=== PATIENT | male | born 1950 | race Caucasian/White ===

== ENCOUNTER → 2018-07-04 | Outpatient (CLI) | payer OTHER | LOC: CIMAGING 13:18 | PROVIDERS: ATTEND Physician Assistant | DX: M51.36 Other intervertebral disc degeneration, lumbar region (principal); M48.061 Spinal stenosis, lumbar region without neurogenic claudication; Z98.1 Arthrodesis status | CPT/HCPCS: 72131-PO ==

== ENCOUNTER → 2018-09-13 | Outpatient (CLI) | payer OTHER ==
[~2018-09-13] MED LIST: REGADENOSON 0.4 MG/5 ML SYR IVP ONE
--- NOTE | 2018-09-13 13:31 | CPR ---
DATE OF PROCEDURE: 09/13/2018 PROCEDURE: Lexiscan nuclear stress test. INDICATION: Patient is a 68-year-old male who plans undergo prolonged back surgery next week. His r isk factors for coronary artery disease, include ongoing tobacco use. He also has a family history o f coronary artery disease with his father having a fatal CO at the age of 59. DESCRIPTION OF PROCEDURE: Consent was obtained and the patient was placed on continuous telemetry. His resting EKG reveals normal sinus rhythm with a heart rate of 78. His MO-interval is borderline a t 200. He has evidence of a right bundle branch block and left anterior fascicular block. The patie nt was infused with Lexiscan and complained of flushing and mild shortness of breath. He remained in normal sinus rhythm without any significant ST-T wave changes. His blood pressure at rest was 116/7 8 and remained stable throughout the procedure. PLAN: Await nuclear images. /[id number]/MODL
== END ==
LOC: FIMAGING 11:32
PROVIDERS: ATTEND Nurse Practitioner Family
DX: Z01.810 Encounter for preprocedural cardiovascular examination (principal); I25.10 Atherosclerotic heart disease of native coronary artery without angina pectoris; I25.2 Old myocardial infarction; I44.2 Atrioventricular block, complete; R94.31 Abnormal electrocardiogram [ECG] [EKG]; F17.200 Nicotine dependence, unspecified, uncomplicated; Z82.49 Family history of ischemic heart disease and other diseases of the circulatory system
CPT/HCPCS: 78452; A9500; J2785

== ENCOUNTER 2018-09-17 07:15 | Inpatient (IN) | payer OTHER ==
[2018-09-19] MEDS ORDERED: GABAPENTIN 300 MG CAP PO ONE (05:57)
[2018-09-19] MEDS ORDERED: ceFAZolin 2 GM/DEXTROSE 100 ML IV ONE (05:57)
[2018-09-19] MEDS ORDERED: ACETAMINOPHEN 500 MG TAB PO ONE (05:57)
[2018-09-19] MEDS ORDERED: LIDOCAINE 1% 2 ML INJ ID PRN (05:58)
[2018-09-19] MEDS ORDERED: LR 1,000 ML IV ONE (05:58)
--- NOTE | 2018-09-19 06:26 | PDHPUP ---
History & Physical Update H&P update statement: This history and physical update is based on an assessment of the patient which was completed after admission or registration (within 24 hours), but prior to the surgery/procedure. H&P update: H&P reviewed & patient examined, no change in patient's condition since H&P completed
[2018-09-19] MEDS ORDERED: MIDAZOLAM 2 MG/2 ML VIAL ONE (07:01)
[2018-09-19] MEDS ORDERED: CHLORHEXIDINE GLUC HIBICLENS 118 ML BTL TP ONE (07:02)
[2018-09-19] MEDS ORDERED: THROMBIN (BOVINE) 20,000 UNIT VIAL TP ONE (07:02)
[2018-09-19] MEDS ORDERED: BACITRACIN 50,000 UNITS/10 ML SYR IRR ONE ×2 (07:03→10:33)
[2018-09-19] MEDS ORDERED: BUPIVACAINE/EPI 0.25% 30 ML SDV ONE (07:03)
[2018-09-19] MEDS ORDERED: MIDAZOLAM 2 MG/2 ML VIAL IVP ONE (07:04)
[2018-09-19] MEDS ORDERED: PROPOFOL 200 MG/20 ML VIAL ONE ×2 (07:07→12:09)
[2018-09-19] MEDS ORDERED: fentaNYL 250 MCG/5 ML INJ ONE (07:10)
[2018-09-19] MEDS ORDERED: PROPOFOL/EMULSION 500 MG/50 ML BOTTLE IV ONE ×5 (07:11→10:39)
[2018-09-19] MEDS ORDERED: ONDANSETRON 4 MG/2 ML VIAL IVP PRN (07:32)
[2018-09-19] MEDS ORDERED: diphenhydrAMINE 25 MG CAP PO PRN (07:32)
[2018-09-19] MEDS ORDERED: NALOXONE HCL 0.4 MG/ML INJ IVP PRN ×2 (07:32→11:42)
[2018-09-19] MEDS ORDERED: LACTULOSE 20 GM/30 ML UDCUP PO PRN (07:32)
[2018-09-19] MEDS ORDERED: HYDROmorphONE/DILAUDID 6 MG/30 ML PCA IV PRN (07:32)
[2018-09-19] MEDS ORDERED: HYDROmorphONE/DILAUDID 1 MG/ML INJ IVP PRN (07:32)
[2018-09-19] MEDS ORDERED: BISACODYL 10 MG SUPP PR PRN (07:32)
[2018-09-19] MEDS ORDERED: MAGNESIUM HYDROXIDE 30 ML UDCUP PO PRN (07:32)
[2018-09-19] MEDS ORDERED: ONDANSETRON DISINTEGRATING 4 MG TAB PO PRN (07:32)
[2018-09-19] MEDS ORDERED: NS 1,000 ML IV SCH (07:45)
--- NOTE | 2018-09-19 08:25 | PDANEPAE ---
ANE History of Present Illness back pain ANE Past Medical History - Cardiovascular History Hx Hypertension: No Hx Arrhythmias: Yes Hx Chest Pain: No Hx Coronary Artery / Peripheral Vascular Disease: No Hx CHF / Valvular Disease: No Hx Palpitations: No Cardiovascular History Comment: has PPM inserted 01/2018 r/t occasional CHB - Pulmonary History Hx COPD: Yes Hx Asthma/Reactive Airway Disease: No Hx Recent Upper Respiratory Infection: No Hx Oxygen in Use at Home: No Hx Sleep Apnea: Yes Sleep Apnea Screening Result - Last Documented: Positive Pulmonary History Comment: MILD COPD DX 07/30/15. 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 squamous cell spots removed - Congenital Disorder History Hx Congenital Disorders: No - GI History GERD: no Hx Gastrointestinal Disorders: No Gastrointestinal History Comment: LOW SALIVA PRODUCTION r/t SJOGRENS - Other Health History Other Health History: SJOGRENS DX- AUTOIMMUNE. has dentures, upper and lower - has 1 implant upper and 2 implants that he glues the dentures to. wears glasses. osteoarthritis. reports lack of balance - Chronic Pain History Chronic Pain: Yes (BACK) - Surgical History Prior Surgeries: bilateral rotator cuff repairs. SURG URETER/R KIDNEY REMOVAL . BACK FUSION L3/4 4/5S- C2/3 3/4 4/5 5/6. CERVICAL DISCECTOMY. LUMBAR DISCECTOMY. R SHOULDER SCOPE. PILONOIDAL CYST REMOVAL. TONSILLECTOMY ANE Review of Systems Review of systems is: negative Review of Systems: - Exercise capacity Exercise capacity: >=4 METS METS (RN): 4 METS - Pacemaker Pacemaker Type: Permanent Pacer/Defib Pacemaker Classified Advertising Manager: Digital Path Pacemaker Model: Solia S60 Pacemaker Mode: DDD Pacemaker Set Rate: 50 ANE Patient History - Allergies Allergies/Adverse Reactions: No Known Allergies Allergy (Verified 08/29/18 10:38) - Home Medications Home medications: home medication list seen and reviewed Home Medications: oxyCODONE HCL/ACETAMINOPHEN [Percocet 7.5-325 mg Tablet] 1 each PO BID 07/30/12 [Last Taken 09/19/18 03:30] Acetaminophen/ASA/Caffeine [Excedrin Tablet (*)] 2 each PO TID 08/29/18 [Last Taken 09/09/18] Cholecalciferol Vit D3 [Vitamin D3 (*)] 1,000 units PO DAILY 08/29/18 [Last Taken 09/09/18] DULoxetine [Cymbalta 60 MG (*)] 60 mg PO DAILY 08/29/18 [Last Taken 09/19/18 03: 30] Finasteride [Proscar 5 MG (*)] 5 mg PO HS 08/29/18 [Last Taken 09/18/18 20:00] Pilocarpine HCl [Salagen 5mg (*)] 5 mg PO QID 08/29/18 [Last Taken 09/19/18 03: 30] Tamsulosin HCl [Flomax 0.4 MG (*)] 0.4 mg PO HS 08/29/18 [Last Taken 09/18/18 20 :00] Chantix 09/04/18 [Last Taken 09/19/18 03:30] - NPO status NPO Status: no food or drink >8 hours NPO Since - Liquids (Date): 09/19/18 NPO Since - Liquids (Time): 03:30 NPO Since - Solids (Date): 09/18/18 NPO Since - Solids (Time): 21:00 - Anes Hx Anes Hx: no prior problems - Smoking Hx Smoking Status: Current every day smoker - Family Anes Hx Family Hx Anesthesia Complications: NONE ANE Labs/Vital Signs - Vital Signs Vital Signs: reviewed preoperatively; see RN documention for details Blood Pressure: 123/72 Heart Rate: 69 Respiratory Rate: 9 O2 Sat (%): 90 Height: 187.96 cm Weight: 95.254 kg ANE Physical Exam - Airway Neck exam: FROM Mallampati Score: Class 1 Mouth exam: normal dental/mouth exam - Pulmonary Pulmonary: no respiratory distress - Cardiovascular Cardiovascular: regular rate and rhythym - ASA Status ASA Status: III
[2018-09-19] MEDS ORDERED: HYDROmorphONE/DILAUDID 2 MG/ML INJ ONE ×2 (08:50→11:06)
[2018-09-19] MEDS ORDERED: ePHEDrine SULFATE 25 MG/5 ML SYR ONE (08:53)
[2018-09-19] MEDS ORDERED: PHENYLEPHRINE HCL 100 MCG/ML SYR ONE (08:53)
[2018-09-19] MEDS ORDERED: ONDANSETRON 4 MG/2 ML VIAL ONE (09:46)
[2018-09-19] MEDS ORDERED: DEXAMETHASONE 4 MG/ML VIAL ONE ×2 (10:47)
[2018-09-19] MEDS ORDERED: ROCURONIUM 50 MG/5 ML VIAL ONE (10:47)
[2018-09-19] MEDS ORDERED: LIDOCAINE 2% 5 ML SDV ONE (10:47)
[2018-09-19] MEDS ORDERED: HYDROmorphONE/DILAUDID 2 MG/ML INJ IVP PRN (11:42)
[2018-09-19] MEDS ORDERED: ALBUTEROL 3 ML DEYVIAL IH PRN (11:42)
[2018-09-19] MEDS ORDERED: fentaNYL 100 MCG/2 ML INJ IVP PRN (11:42)
[2018-09-19] MEDS ORDERED: oxyCODONE IR 5 MG TAB PO PRN (11:42)
[2018-09-19] MEDS ORDERED: ACETAMINOPHEN 500 MG TAB PO PRN (11:42)
[2018-09-19] MEDS ORDERED: LABETALOL HCL 20 MG/4 ML INJ IVP PRN (11:42)
[2018-09-19] MEDS ORDERED: DIAZEPAM 5 MG/ML 1 ML SYR IVP PRN (11:42)
[2018-09-19] MEDS ORDERED: METOCLOPRAMIDE 10 MG/2 ML VIAL IVP PRN (11:42)
[2018-09-19] MEDS ORDERED: MEPERIDINE 25 MG/0.5 ML AMP IVP PRN (11:42)
[2018-09-19] MEDS ORDERED: PHENYLEPHRINE HCL 100 MCG/ML SYR IVP PRN (11:42)
[2018-09-19] MEDS ORDERED: PROMETHAZINE HCL 25 MG/ML INJ IVP PRN (11:42)
--- NOTE | 2018-09-19 11:49 | PDMN ---
Medical Necessity Medical necessity: Pt meets IP criteria as of 09/19/2018 per and [facility] [place] Lumbar fusion with removal of posterior instrumentation; Medicare IP only procedure
--- NOTE | 2018-09-19 13:29 | POSTOPPROG ---
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
--- NOTE | 2018-09-19 13:31 | SOAPPROG ---
SOAP Progress Note Assessment/Plan: Post Op Visit: S: Awake and alert. Pt with expected lower back pain O: AFVSS/PERRLA/EOMI no droop CN 2-12 grossly intact +lt touch 5/5 BUE/BLE = CDI NORMAN in place A/P: 68 yo male that is s/p TLIF at L2/3 and L5/S1 with PSF L2-S1 -orders in place -brace when out of bed -call with any questions or concerns -pt understands and agrees -post op xrays in am -no bending or twisting Objective: Vital Signs Temp Pulse Resp BP Pulse Ox 36.2 C 68 14 96/57 L 93 09/19/18 13:20 09/19/18 13:20 09/19/18 13:22 09/19/18 13:22 09/19/18 13:22 09/18/18 09/19/18 09/20/18 05:59 05:59 05:59 Intake Total 1950 Output Total 700 Balance 1250 ICD10 Worksheet Patient Problems: Problems Problem Status Onset Arthrodesis status Acute Lumbar radicular pain Acute Lumbar stenosis Acute - ICD10 Problem Qualifiers (1) Lumbar stenosis (2) Lumbar radicular pain (3) Arthrodesis status
[2018-09-19] MEDS: DULoxetine 60 MG CAP PO SCH (15:23)
[2018-09-19] MEDS: CHOLECALCIFEROL VIT D3 1,000 UNITS TAB PO SCH (15:23)
[2018-09-19] MEDS: PILOCARPINE HCL 5 MG TAB PO SCH ×3 (15:24→21:47)
[2018-09-19] MEDS: ceFAZolin 2 GM/DEXTROSE 100 ML IV SCH ×2 (15:31→21:45)
[2018-09-19] MEDS: ACETAMINOPHEN 500 MG TAB PO SCH ×2 (15:37→22:19)
[2018-09-19] MEDS: SENNOSIDES/DOCUSATE SODIUM TAB PO SCH ×2 (15:38→21:50)
[2018-09-19] MEDS: FAMOTIDINE 20 MG TAB PO SCH ×2 (15:39→21:48)
[2018-09-19] MEDS: METHOCARBAMOL 750 MG TAB PO PRN ×2 (15:39→21:51)
[2018-09-19] MEDS: GABAPENTIN 300 MG CAP PO SCH ×2 (15:39→21:46)
--- NOTE | 2018-09-19 17:25 | POSTANESTH ---
Post Anesthetic Evaluation Cardiovascular Status: Normal, Stable Respiratory Status: Normal, Stable Level of Consciousness/Mental Status: Can Participate in Eval Pain Control: Adequate, Prn Tx Ordered Nausea/Vomiting Control: Adequate, Prn Tx Ordered Complications Possibly Related to Anesthesia: None Noted
[2018-09-19] MEDS: HYDROCODONE/APAP 5/325 TAB PO PRN ×2 (18:09→22:16)
--- NOTE | 2018-09-19 18:19 | GOP ---
DATE OF OPERATION: 09/19/2018 SURGEON: Jose M Back MD NEUROSURGEON: Jose M Back MD BIOCHEMICAL ENGINEER: HERACLIO Meek-. PREOPERATIVE DIAGNOSIS: Possible pseudarthrosis following fusion at L5-S1, severe adjacent segment d isease at L2-3 above a prior L3-S1 fusion, bilateral lumbosacral radiculopathy, spinal stenosis, lumb ar degenerative disk disease L2-3. 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 PROCEDURE PERFORMED: We did a removal of posterior segmental instrumentation L3, L4, L5, S1, postero lateral intervertebral arthrodesis at L2-3 (45589), posterolateral and intervertebral arthrodesis L5- S1 (24224), posterior segmental instrumentation with new hardware at L2, L3, L4, L5, S1, same incisio n bone graft harvest, microscope, spinal stereotaxy, placement of biomechanical intervertebral device L2-3, L5-S1 (33311 x2). FINDINGS: Consistent with diagnoses and indeed we did confirm that there was a pseudoarthrosis at L5 -S1. It was stable, but there was not bony union present. SPECIMENS: None. INDICATIONS: The patient is a mature gentleman who had a prior history of an L3-S1 fusion back in 28 06, really without complication. He developed increasingly severe bilateral lumbosacral radiculopath y that was not responsive to conservative treatment measures. On imaging, it was unclear whether he had achieve bony union at L5-S1, but he appeared to be solid at L3-4, L4-5. CT scan was done, and th ere was evidence of some lucency around the S1 screws, and I was not convinced he had achieved bony a rthrodesis at that level. He did not appear to be having symptoms from it, but he did have radiating left leg pain. It is possible the left foraminal stenosis at L5-S1 could be contributing. I felt m ost of his left lower extremity pain was related to the severe adjacent segment stenosis at L2-3 abov e his fusion. I suggested that we do an adjacent segment fusion, remove his prior hardware, and inve stigate the fusion at L5-S1, and if indeed, he had a pseudoarthrosis, we could then fix at that time. The risk of nerve injury and spinal fluid leak was discussed. He knew that an ALIF procedure may b e necessary to fix the pseudoarthrosis at 5-1, but it was quite an undertaking to do this. I did exp renee the benefits of ALIF. It would help us get better taoist of his sagittal balance, but it i nvolves removing the posterior hardware first, followed by the ALIF, followed by going back to the po sterior approach. We thought we could try to achieve all of our surgical goals with a single approac h from the posterior aspect, but he understood their limitations with the posterior approach alone. He knew there was risk of further adjacent segment disease at L1-2, recurrent stenosis, and the possi ble need for future surgery. He wanted to proceed despite these risks. He also knew there was risk of screw and hardware malfunction, malposition, and he did want to proceed despite those risks as norman arnett. DESCRIPTION OF PROCEDURE: The patient was taken to the operating room, placed in supine position. G eneral anesthesia was begun. He was flipped prone onto the Esteban table. Care was taken to pad all points of contact. His left arm was tucked at his side. It was not put up above his head because t he last surgery, he had difficulty for several days with the left arm, and indeed, we saw signals in the left median nerve were not as good when the arm was up above his head, so we were able to success fully tuck it at his side. The right arm was put in the standard position. He was sterilely prepped and draped in usual fashion. A localizing x-ray was taken. We made a midline incision and it was quite long. We opened the prior incision, extended it rostrall y for about 4 or 5 cm and inferiorly about 3 cm. The new incision was twice as long as the old incis ion and measured on the order of about 13 cm. The subcutaneous tissue was dissected using the plasma blade down through the fascia and a subperiosteal dissection was made down the L1 lamina. We expose d the complete L2 and rostral L3 lamina. The screws at L3, 4, 5, and S1 were dissected free. We the n removed all these screws, cap screws, rods, and crosslink without difficulty. There was very solid posterolateral bone present from L3 to L5. We denuded all the posterolateral bone to create bony ar throdesis, and then, we looked carefully at the posterolateral bone at L5-S1. There was a large amou nt of posterolateral bone. We looked on the right first and there was just a thin hairline crack goi ng through this, and indeed, there was a pseudoarthrosis present. We took a matchstick drill bit and drilled down through the pseudoarthrosis adjacent to the L5 pedicle, and we had a large amount of reed ny exposure on either side of the pseudarthrosis. This was all decorticated, cleaned up to prepare f or repeat arthrodesis. The S1 screws also were notably somewhat loose when they removed. They were not completely loose, but they definitely were loose compared to the other screws consistent with our diagnosis of pseudoarthrosis. On the left-hand side, it was more subtle where the defect was, but it appeared to run in a longitudi nal fashion down toward the S1 pedicle. We decorticated all of this material and exposed bone, both at the L5 pedicle screw and the S1 pedicle screw to prepare for arthrodesis. We then performed an O- arm spin and using frame of Stealth stereotaxy, we placed pedicle screws bilaterally at L2, L3, L4, L 5, and S1. The S1 screws, we increased the diameter on these screws from 6.5 to 8.5 mm and had excel lent bony purchase. They were very strong screws. We did not distract whatsoever during the entire case at L5-S1 and simply allowed those screws to remain in their in-situ location in an effort to try to get a bony arthrodesis to occur there. I had a nice wide exposure at L5-S1 and I elected to try to perform a TLIF there. The O arm images a lso showed the foramen quite nicely and I thought there was good intervertebral space from me to put a spacer at L5-S1. We drilled a complete left L5-S1 facetectomy, identified the traversing or exitin g L5 nerve root at that level and the traversing S1 root. We worked in the axilla of the 5 root and incised the 5-1 disk, and then removed the disk and the cartilaginous endplates. We shot x-rays to c onfirm our location at L5-S1 in the intervertebral space. We removed a lot of this bone and roughene d the subchondral bone to create arthrodesis. We then placed bone autograft and BMP into the disk sp malena, followed by 7 x 25 mm [place] PEEK intervertebral device. It was inserted at L5-S1 and a great fit was obtained and AP and lateral x-rays confirmed the position of the device. We had also put a large amount of bone autograft there. This bone autograft had been harvested from the L3 spinous pro cess. After doing this, we then removed the microscope from the field as we had used the microscope for the foraminotomy, facetectomy, and decompression. We then took rods, placed them down over the screws f rom L2-S1 and then distracted at L2-3 and opened up that disk space. This was done temporarily until the TLIF was done. After the TLIF was done, we compressed at L2-3 to try to get some lordosis at th at level. We final tightened the other cap screws at S1, L5, L4, and L3, and then, we brought in the scope again, remove much of the inferior L2 spinous process, drilled bilateral laminectomies of L2, decompressed the thecal sac. There was very severe stenosis. We performed foraminotomies on each si de. We were able to easily pass our ball-tip probe out through the neural foramen at the end of our decompression. We removed the left L2-3 facet joint and prepared for a TLIF. We swept the L3 nerve medially at L2-3 and then incised the L2-3 disk, and removed the disk and the cartilaginous endplates. We roughened the subchondral bone there to create arthrodesis. We then sized with a trial and then chose a 7 x 28 mm device and inserted at L2-3. It was at this point, we relaxed our distraction and compressed on the rods, collapsing L2 on L3 slightly, and then after this was done, we then locked the screws in th is position and then expanded our implant, and we got some lordosis at L2-3. At least, it was better than prior to the procedure. We had bone autograft and BMP that we had also placed in the disk spac e there. This is ventral to the device, itself. We then decorticated all the posterolateral bone bi laterally at L2-3, L3-4, L4-5, and 5-1. We then placed a large amount of bone autograft as we had a huge amount of bone autograft present. We placed it bilaterally at L5-S1 and bilaterally at L2-3 to conclude our arthrodesis. We placed a subfascial drain, and then closed the incision in multiple lay ers using Vicryl sutures and a running PDS was placed in the skin itself. The patient was reversed f rom anesthesia, extubated, and transferred to recovery room in stable condition. There were no compl ications. COMPLICATIONS: None. INSTRUMENTATION: Hardware removed was Medtronic Solera 475 system. Hardware placed was Medtronic So laura 5.5 mm system with a titanium rods in the. /[id number]/MODL
[2018-09-19] MEDS: TAMSULOSIN HCL 0.4 MG CAP PO SCH (21:47)
[2018-09-19] MEDS: FINASTERIDE 5 MG TAB PO SCH (21:48)
[2018-09-20] MEDS: METHOCARBAMOL 750 MG TAB PO PRN (03:46)
[2018-09-20] MEDS: HYDROCODONE/APAP 5/325 TAB PO PRN ×3 (03:47→11:46)
[2018-09-20] MEDS: GABAPENTIN 300 MG CAP PO SCH ×3 (05:18→22:09)
[2018-09-20] MEDS: PILOCARPINE HCL 5 MG TAB PO SCH ×4 (05:18→22:09)
[2018-09-20 05:19] LABS: PLATELET COUNT 208 10^3/uL (150-400)
[2018-09-20] MEDS: ACETAMINOPHEN 500 MG TAB PO SCH ×3 (05:21→22:10)
--- NOTE | 2018-09-20 07:39 | NEUSURGPN ---
Date of Surgery: 09/19/18 Post Op Day: 1 Assessment/Plan: Assessment: 68 yo male that is s/p TLIF at L2/3 and L5/S1 with PSF L2-S1 POD #1 Plan: -s/p L spine surgery: Pt with expected lower back pain, legs feel better -orders in place -PT/OT ordered -brace when out of bed -call with any questions or concerns -pt understands and agrees -post op xrays in am -no bending or twisting Subjective: Awake and alert. NAD. Pt with expected lower back pain. No marie/neck/chest/abd or gu complaints. Objective: AFVSS/PERRLA/EOMI no droop CN 2-12 grossly intact +lt touch 5/5 BUE/BLE = CDI NORMAN in place Neuro Check Frequency: per routine Urinary Catheter in Place: No Catheter Insertion Date: 09/19/18 - Physician Discussed Patient with : Wong Patient Seen by : Wong Neurosurgery Physical Exam - Vitals, I&O, Labs I and O 09/19/18 09/20/18 09/21/18 05:59 05:59 05:59 Intake Total 4130 500 Output Total 3065 1000 Balance 1065 -500 Weight 95.254 kg Intake: Oral (ml) 2180 500 IV Intake (ml) 1950 Output: Urine (ml) 2625 1000 Catheter 2625 1000 Estimated Blood Loss (ml) 400 NORMAN Drain Output (ml) 40 #1 Back Esteban Polanco 40 Other: Intake Quantity Yes Sufficient Number of Stools Catheter 0 Vital Signs Temp Pulse Resp BP Pulse Ox 36.9 C 80 16 113/66 97 09/20/18 03:39 09/20/18 03:39 09/20/18 03:39 09/20/18 03:39 09/20/18 03:39 Laboratory Results 09/20/18 04:19 09/20/18 04:19 ICD10 Worksheet Patient Problems: Problems Problem Status Onset Arthrodesis status Acute Lumbar radicular pain Acute Lumbar stenosis Acute - ICD10 Problem Qualifiers (1) Lumbar stenosis (2) Lumbar radicular pain (3) Arthrodesis status
[2018-09-20] MEDS: DULoxetine 60 MG CAP PO SCH (08:23)
[2018-09-20] MEDS: CHOLECALCIFEROL VIT D3 1,000 UNITS TAB PO SCH (08:23)
[2018-09-20] MEDS: SENNOSIDES/DOCUSATE SODIUM TAB PO SCH ×2 (08:24→22:09)
[2018-09-20] MEDS: FAMOTIDINE 20 MG TAB PO SCH ×2 (08:24→22:10)
--- NOTE | 2018-09-20 10:36 | ASMTCMCOM ---
CM Note CM Note Notes: Patient is POD 1 TLIF L2-3, L5-S1 w PSF L2-S1. He is doing well with some expected back pain. Patient lives w his partner Eufemia. He is normally independent and works. Dr Back's office has ordered home health through [facility]. Dunia from [facility] met with patient today. Case Management will follow. CM Discharge plan: [facility] Date Signed: 09/20/2018 10:35 AM Electronically Signed By:Jo Mas RN
[2018-09-20] MEDS: oxyCODONE IR 5 MG TAB PO PRN ×2 (12:37→19:34)
[2018-09-20] MEDS: TAMSULOSIN HCL 0.4 MG CAP PO SCH (22:09)
[2018-09-20] MEDS: FINASTERIDE 5 MG TAB PO SCH (22:09)
[2018-09-21] MEDS: oxyCODONE IR 5 MG TAB PO PRN ×4 (06:02→21:50)
[2018-09-21] MEDS: PILOCARPINE HCL 5 MG TAB PO SCH ×4 (06:02→19:50)
[2018-09-21] MEDS: GABAPENTIN 300 MG CAP PO SCH ×3 (06:02→21:50)
[2018-09-21] MEDS: ACETAMINOPHEN 500 MG TAB PO SCH ×3 (06:03→21:50)
--- NOTE | 2018-09-21 07:48 | NEUSURGPN ---
Date of Surgery: 09/19/18 Post Op Day: 2 Assessment/Plan: Assessment: 68 yo male that is s/p TLIF at L2/3 and L5/S1 with PSF L2-S1 POD #2 Plan: -neuro stable -PT/OT -wear brace when out of bed -postop L-spine x-rays pending -monitor incision for drainage -SCDs/TEDs, Lovenox scheduled to start 09/22 -Dispo: likely home tomorrow Discussed with Dr. Back. Subjective: No new overnight issues. Pain worse with rolling over in bed. Objective: Awake. Alert. PERRL. EOMI Facial expression symmetrical Muscle strength full at 5/5 Incision with dressing with some shadowing at the superior aspect Catheter Insertion Date: 09/19/18 - Physician Discussed Patient with : Wong Neurosurgery Physical Exam - Vitals, I&O, Labs I and O 09/20/18 09/21/18 09/22/18 05:59 05:59 05:59 Intake Total 4130 1450 Output Total 3065 2750 850 Balance 1065 -1300 -850 Weight 95.254 kg Intake: Oral (ml) 2180 1450 IV Intake (ml) 1950 Output: Urine (ml) 2625 2750 850 Catheter 2625 1000 Urinal 1750 850 Estimated Blood Loss (ml) 400 NORMAN Drain Output (ml) 40 #1 Back Esteban Polanco 40 Other: Intake Quantity Yes Sufficient Output Comment Urinal Spilled all over floor Number of Voids Urinal 2 Number of Stools Catheter 0 Vital Signs Temp Pulse Resp BP Pulse Ox 36.8 C 89 14 116/72 93 09/21/18 07:44 09/21/18 07:44 09/21/18 07:44 09/21/18 07:44 09/21/18 07:44 Laboratory Results 09/20/18 04:19 09/20/18 04:19 ICD10 Worksheet Patient Problems: Problems Problem Status Onset Arthrodesis status Acute Lumbar radicular pain Acute Lumbar stenosis Acute
[2018-09-21] MEDS: SENNOSIDES/DOCUSATE SODIUM TAB PO SCH ×2 (10:49→19:50)
[2018-09-21] MEDS: DULoxetine 60 MG CAP PO SCH (10:50)
[2018-09-21] MEDS: CHOLECALCIFEROL VIT D3 1,000 UNITS TAB PO SCH (10:50)
[2018-09-21] MEDS: FAMOTIDINE 20 MG TAB PO SCH ×2 (10:51→19:50)
[2018-09-21] MEDS: POLYETHYLENE GLYCOL 3350 17 GM PKT PO PRN (10:59)
[2018-09-21] MEDS: METHOCARBAMOL 750 MG TAB PO PRN ×2 (12:20→21:50)
[2018-09-21] MEDS: FINASTERIDE 5 MG TAB PO SCH (19:50)
[2018-09-21] MEDS: TAMSULOSIN HCL 0.4 MG CAP PO SCH (19:50)
[2018-09-22] MEDS: oxyCODONE IR 5 MG TAB PO PRN ×4 (06:01→20:41)
[2018-09-22] MEDS: ACETAMINOPHEN 500 MG TAB PO SCH ×3 (06:01→22:14)
[2018-09-22] MEDS: PILOCARPINE HCL 5 MG TAB PO SCH ×4 (06:01→20:41)
[2018-09-22] MEDS: METHOCARBAMOL 750 MG TAB PO PRN (06:01)
[2018-09-22] MEDS: GABAPENTIN 300 MG CAP PO SCH ×3 (06:01→22:14)
[2018-09-22] MEDS: CHOLECALCIFEROL VIT D3 1,000 UNITS TAB PO SCH (08:42)
[2018-09-22] MEDS: ENOXAPARIN 40 MG/0.4 ML SYR SC SCH (08:43)
[2018-09-22] MEDS: DULoxetine 60 MG CAP PO SCH (08:43)
[2018-09-22] MEDS: POLYETHYLENE GLYCOL 3350 17 GM PKT PO PRN (08:43)
[2018-09-22] MEDS: SENNOSIDES/DOCUSATE SODIUM TAB PO SCH ×2 (08:43→20:41)
[2018-09-22] MEDS: FAMOTIDINE 20 MG TAB PO SCH ×2 (08:43→20:41)
--- NOTE | 2018-09-22 12:04 | NEUSURGPN ---
Date of Surgery: 09/19/18 Post Op Day: 3 Assessment/Plan: Assessment: 68 yo male that is s/p TLIF at L2/3 and L5/S1 with PSF L2-S1 POD #3 Plan: -neuro stable -PT/OT -wear brace when out of bed -postop L-spine x-rays show stable hardware placement -monitor incision for drainage, change dressing today -SCDs/TEDs, Lovenox scheduled to start 09/22 -Dispo: likely home Monday Discussed with Dr. Back. Subjective: left leg pain Objective: AxO x4 BELLA x4 5/[address]-some dried SA fluid on gauze, steri strips in place CDI Neuro Check Frequency: per routine Urinary Catheter in Place: No Catheter Insertion Date: 09/19/18 - Physician Discussed Patient with : Wong Neurosurgery Physical Exam - Vitals, I&O, Labs I and O 09/21/18 09/22/18 09/23/18 05:59 05:59 05:59 Intake Total 1450 1750 Output Total 2750 2450 Balance -1300 -700 Intake: Oral (ml) 1450 1750 Output: Urine (ml) 2750 2450 Catheter 1000 Toilet 400 Urinal 1750 2050 Other: Intake Quantity Yes Sufficient Output Comment Urinal Spilled all over floor Number of Voids Toilet 1 Urinal 2 1 Vital Signs Temp Pulse Resp BP Pulse Ox 36.6 C 89 16 113/61 96 09/22/18 07:50 09/22/18 07:50 09/22/18 07:50 09/22/18 07:50 09/22/18 07:50 Laboratory Results 09/20/18 04:19 09/20/18 04:19 ICD10 Worksheet Patient Problems: Problems Problem Status Onset Arthrodesis status Acute Lumbar radicular pain Acute Lumbar stenosis Acute
[2018-09-22] MEDS: DIAZEPAM 5 MG TAB PO PRN (17:31)
[2018-09-22] MEDS: FINASTERIDE 5 MG TAB PO SCH (20:41)
[2018-09-22] MEDS: TAMSULOSIN HCL 0.4 MG CAP PO SCH (20:41)
[2018-09-23] MEDS: GABAPENTIN 300 MG CAP PO SCH ×3 (05:48→21:57)
[2018-09-23] MEDS: ACETAMINOPHEN 500 MG TAB PO SCH ×3 (05:49→21:58)
[2018-09-23] MEDS: oxyCODONE IR 5 MG TAB PO PRN ×5 (05:49→21:58)
[2018-09-23] MEDS: PILOCARPINE HCL 5 MG TAB PO SCH ×4 (05:49→21:13)
--- NOTE | 2018-09-23 08:04 | NEUSURGPN ---
Date of Surgery: 09/19/18 Post Op Day: 4 Assessment/Plan: Assessment: 68 yo male that is s/p TLIF at L2/3 and L5/S1 with PSF L2-S1 POD #4 Plan: -neuro stable -PT/OT -wear brace when out of bed -postop L-spine x-rays show stable hardware placement -monitor incision for drainage, change dressing today -SCDs/TEDs, Lovenox scheduled to start 09/22 -Dispo: likely home Monday if pain controlled Please call neurosurgery with questions/concerns Discussed with Dr. Back. Subjective: Left leg pain better than yesterday Objective: AxO x4 BELLA x4 5/5 BUE, BLE Sensation intact to light touch BLE Dressing CDI except for SA drainage on proximal end, Steri strips in place Neuro Check Frequency: per routine Urinary Catheter in Place: No Catheter Insertion Date: 09/19/18 - Physician Discussed Patient with : Wong Neurosurgery Physical Exam - Vitals, I&O, Labs I and O 09/22/18 09/23/18 09/24/18 05:59 05:59 05:59 Intake Total 1750 1100 Output Total 2450 Balance -700 1100 Intake: Oral (ml) 1750 1100 Output: Urine (ml) 2450 Toilet 400 Urinal 2050 Other: Intake Quantity Yes Yes Sufficient Number of Voids Toilet 1 1 Urinal 1 Vital Signs Temp Pulse Resp BP Pulse Ox 36.7 C 76 19 101/53 L 94 09/23/18 07:18 09/23/18 07:18 09/23/18 07:18 09/23/18 07:18 09/23/18 07:18 Laboratory Results 09/20/18 04:19 09/20/18 04:19 ICD10 Worksheet Patient Problems: Problems Problem Status Onset Arthrodesis status Acute Lumbar radicular pain Acute Lumbar stenosis Acute
[2018-09-23] MEDS: FAMOTIDINE 20 MG TAB PO SCH ×2 (09:05→21:12)
[2018-09-23] MEDS: CHOLECALCIFEROL VIT D3 1,000 UNITS TAB PO SCH (09:05)
[2018-09-23] MEDS: DULoxetine 60 MG CAP PO SCH (09:05)
[2018-09-23] MEDS: SENNOSIDES/DOCUSATE SODIUM TAB PO SCH ×2 (09:05→21:15)
[2018-09-23] MEDS: POLYETHYLENE GLYCOL 3350 17 GM PKT PO PRN (09:05)
[2018-09-23] MEDS: ENOXAPARIN 40 MG/0.4 ML SYR SC SCH (09:06)
[2018-09-23] MEDS: DIAZEPAM 5 MG TAB PO PRN (12:03)
[2018-09-23] MEDS: TAMSULOSIN HCL 0.4 MG CAP PO SCH (21:12)
[2018-09-23] MEDS: FINASTERIDE 5 MG TAB PO SCH (21:13)
[2018-09-24] MEDS: oxyCODONE IR 5 MG TAB PO PRN ×3 (02:03→10:42)
[2018-09-24] MEDS: METHOCARBAMOL 750 MG TAB PO PRN ×2 (02:04→08:34)
[2018-09-24] MEDS: GABAPENTIN 300 MG CAP PO SCH (05:48)
[2018-09-24] MEDS: ACETAMINOPHEN 500 MG TAB PO SCH (05:48)
[2018-09-24] MEDS: PILOCARPINE HCL 5 MG TAB PO SCH (05:49)
--- NOTE | 2018-09-24 07:49 | NEUSURGPN ---
Date of Surgery: 09/19/18 Post Op Day: 5 Assessment/Plan: Assessment: 68 yo male that is s/p TLIF at L2/3 and L5/S1 with PSF L2-S1 POD #5 Plan: -neuro stable -PT/OT -wear brace when out of bed -postop L-spine x-rays show stable hardware placement -incision drainage has stopped -SCDs/TEDs, Lovenox scheduled to start 09/22 -Dispo: discharge home with home health today Please call neurosurgery with questions/concerns Patient seen by Dr Back as well Subjective: doing better, still has left leg pain Objective: AxO x4 MAEx4 02/10 BLE Incision CDI with steri strips Neuro Check Frequency: per routine Urinary Catheter in Place: No Catheter Insertion Date: 09/19/18 - Physician Discussed Patient with : Wong Patient Seen by : Wong Neurosurgery Physical Exam - Vitals, I&O, Labs I and O 09/23/18 09/24/18 09/25/18 05:59 05:59 05:59 Intake Total 1100 800 Balance 1100 800 Intake: Oral (ml) 1100 800 Other: Intake Quantity Yes Yes Sufficient Number of Voids Toilet 1 2 Number of Stools Toilet 2 Vital Signs Temp Pulse Resp BP Pulse Ox 37.0 C 100 18 128/81 H 94 09/23/18 23:31 09/23/18 23:31 09/23/18 23:31 09/23/18 23:31 09/23/18 23:31 Laboratory Results 09/20/18 04:19 09/20/18 04:19 ICD10 Worksheet Patient Problems: Problems Problem Status Onset Arthrodesis status Acute Lumbar radicular pain Acute Lumbar stenosis Acute
--- NOTE | 2018-09-24 07:53 | PDIAF ---
- Diagnosis Diagnosis: S/P lumbar fusion Code Status: Full Code - Medication Management Discharge Medications: electronically signed and located in the Home Medication List. PICC Care - Routine: N/A - Orders Services needed: Home Care, Physical Therapy, Occupational Therapy Home Care Face to Face: I certify that this patient was under my care and that I had the required [id number] encounter meeting the encounter requirements on the discharge day. My findings support the fact that the patient is homebound as defined in Home Care Face to Face Continued: CMS Chapter 7 Medicare Benefits Manual 30.1.1 , The condition of the patient is such that there exists a normal inability to leave home and consequently, leaving home would require a considerable and taxing effort. Isolation Type: None Diet Recommendation: no restrictions on diet Diet Texture: Regular Texture Diet Activity/Weight Bearing Restrictions: Do not lift greater than 10 pounds Additional Instructions: No bending or twisting Do not lift greater than 10 pounds Wear brace when out of bed Ok to shower, leave steri strips in place - Follow Up Care Current Providers and Referrals: Edilma Ayala MD [Primary Care Provider] - Farrah Back MD [Medical Doctor] - follow up as scheduled (Follow up scheduled for 10/03/18 )
[2018-09-24 08:23] VITALS: BP 107/63
[2018-09-24] MEDS: FAMOTIDINE 20 MG TAB PO SCH (08:34)
[2018-09-24] MEDS: DULoxetine 60 MG CAP PO SCH (08:34)
[2018-09-24] MEDS: ENOXAPARIN 40 MG/0.4 ML SYR SC SCH (08:34)
[2018-09-24] MEDS: CHOLECALCIFEROL VIT D3 1,000 UNITS TAB PO SCH (08:34)
[2018-09-24] MEDS: SENNOSIDES/DOCUSATE SODIUM TAB PO SCH (08:36)
--- NOTE | 2018-09-24 14:22 | ASMTCMCOM ---
CM Note CM Note Notes: The plan is for patient to return home with [facility]. Date Signed: 09/23/2018 02:52 PM Electronically Signed By:Miranda Mittal LCSW
--- NOTE | 2018-09-24 14:23 | ASMTDCNOTE ---
Case Management Discharge Discharge Order Complete? Answers: Yes Patient to Obtain Answers: via Family Medications Transportation Arranged Answers: Family/Friends Agency/Facility Transfer Answers: Yes Report Printed & Faxed to Receiving Agency Discharge Comments Notes: CM met with pt. Agreeable to discharge with [facility]. CM spoke with Dunia and sent discharge orders. CM asnwered questions. Pt agreeable with discharge plan. Date Signed: 09/24/2018 09:57 AM Electronically Signed By:EVONNE Weston
--- NOTE | 2018-09-24 14:23 | ASMTLACE ---
LACE Length of stay for Answers: 4-6 days current admission Acuity / Level of Answers: Yes Care: Did the patient have an inpatient admission? Comorbidities - select Answers: Chronic pulmonary disease all that apply Opioid dependence / Chronic pain Other Notes: Hx of ureter cancer # of Emergency department Answers: 0 visits in the last 6 months Score: 14 Date Signed: 09/24/2018 10:01 AM Electronically Signed By:EVONNE Weston
--- NOTE | 2018-09-27 08:40 | ASDISCHSUM ---
Discharge Information Plan Status:Home with Home Health Medically Cleared to Leave: Discharge Date:09/24/2018 10:50 AM CM D/C Disposition:Home, Routine, Self-Care ADT D[facility] Projected Discharge Date:09/24/2018 11:00 AM Transportation at D/C: Discharge Delay Reason: Follow-Up Date:09/24/2018 11:00 AM Discharge Slot:1 - 8:01 am - 12:00 noon Final Diagnosis: Placement Information Referral Type:*Home Health Care Services Referral ID:[id number] Provider Name:[facility] JAREN) Address 1:[address] [address] Address 2: City:[place] Selection Factors: State:[place] Patient Contact Information Contact Name:TERRIE Relationship:Life Partner Address:[address] City:[place] Alternate Phone: State/Zip Code:[place] [phone] Email: Financial Information Financial Class:Medicare Primary Plan Desc:MEDICARE INPATIENT Primary Plan Number:[id number] Secondary Plan Desc:VETO TRISTAN Secondary Plan Number:[id number] Assessment Information LACE LACE Length of stay for Answers: 4-6 days current admission Acuity / Level of Answers: Yes Care: Did the patient have an inpatient admission? Comorbidities - select Answers: Chronic pulmonary disease all that apply Opioid dependence / Chronic pain Other Notes: Hx of ureter cancer # of Emergency department Answers: 0 visits in the last 6 months Score: 14 Date Signed: 09/24/2018 10:01 AM Electronically Signed By:EVONNE Weston [facility] CM Progress Note CM Note CM Note Notes: Patient is POD 1 TLIF L2-3, L5-S1 w PSF L2-S1. He is doing well with some expected back pain. Patient lives w his partner Eufemia. He is normally independent and works. Dr Back's office has ordered home health through [facility]. Dunia from [facility] met with patient today. Case Management will follow. CM Discharge plan: [facility] Date Signed: 09/20/2018 10:35 AM Electronically Signed By:Jo Mas RN [facility] CM Progress Note CM Note CM Note Notes: The plan is for patient to return home with [facility]. Date Signed: 09/23/2018 02:52 PM Electronically Signed By:Miranda Mittal LCSW Case Management Discharge Plan Note Case Management Discharge Discharge Order Complete? Answers: Yes Patient to Obtain Answers: via Family Medications Transportation Arranged Answers: Family/Friends Agency/Facility Transfer Answers: Yes Report Printed & Faxed to Receiving Agency Discharge Comments Notes: CM met with pt. Agreeable to discharge with [facility]. CM spoke with Dunia and sent discharge orders. CM asnwered questions. Pt agreeable with discharge plan. Date Signed: 09/24/2018 09:57 AM Electronically Signed By:EVONNE Weston Intervention Information
== END 2018-09-24 10:50 | disposition home health service (06) | DRG 454 ==
LOC: F3N 09-19 05:41
PROVIDERS: ADMIT Neurological Surgery; ATTEND Neurological Surgery
DX: M96.0 Pseudarthrosis after fusion or arthrodesis (principal); M51.17 Intervertebral disc disorders with radiculopathy, lumbosacral region; Z95.0 Presence of cardiac pacemaker; M35.01 Sjogren syndrome with keratoconjunctivitis; M35.8 Other specified systemic involvement of connective tissue; J44.9 Chronic obstructive pulmonary disease, unspecified; Z85.528 Personal history of other malignant neoplasm of kidney; Z85.54 Personal history of malignant neoplasm of ureter
CPT/HCPCS: 97116-GP; 97161-GP; 97166-GO; 97535-GO; A9500; C1713; G8978-GP-CJ; G8979-GP-CI; G8980-GP-CI; G8987-GO-CJ; G8988-GO-CI; G8990-GO-CI; J0690; J1100; J1170; J1650; J2250; J2270; J2370; J2405; J2704; J2785; J3010

== ENCOUNTER → 2018-11-16 | Outpatient (CLI) | payer OTHER | LOC: FIMAGING 12:54 | PROVIDERS: ATTEND Nurse Practitioner | DX: M43.16 Spondylolisthesis, lumbar region (principal); M43.26 Fusion of spine, lumbar region; M54.16 Radiculopathy, lumbar region; M51.36 Other intervertebral disc degeneration, lumbar region; M25.552 Pain in left hip ==

== ENCOUNTER → 2019-02-15 | Outpatient (CLI) | payer OTHER | LOC: FIMAGING 14:03 | PROVIDERS: ATTEND Physician Assistant | DX: Z98.1 Arthrodesis status (principal) ==